=== PATIENT | female | born 1960 | race Caucasian/White ===

== ENCOUNTER → 2016-09-28 | Outpatient (CLI) | payer BC ==
[~2016-09-28] MED LIST: BENADRYL25 M2 PO; BYSTOLIC10 MG PO; PRIL40 PO; PRILOSEC 20MG20 MG PO; ULTRAM 50MG TAB50 MG PO; VEGETABLE PO; ZESTRIL 20MG TA20 MG PO; ZOFRAN8 MG PO
== END ==
LOC: MC.RAD 09-17 07:40
DX: Z12.31 Encounter for screening mammogram for malignant neoplasm of breast (principal); Z80.3 Family history of malignant neoplasm of breast

== ENCOUNTER → 2018-11-21 | Outpatient (CLI) | payer BC ==
[2018-11-21 13:35] LABS: BASO % 0.4 % (0.0-2.0); EOS # 0.3 (0.0-0.7); EOS % 2.9 % (0-4.0); GRAN # 5.7 (1.4-6.5); GRAN % 62.7 % (42.2-75.2); HEMATOCRIT 44.3 % (37.0-47.0); HEMOGLOBIN 13.9 g/dl (12.5-16.0); LYMPH # 2.3 (1.2-3.4); LYMPH % 25.2 % (20.0-51.0); MEAN CELL VOLUME 90 fl (80.0-100.0); MEAN CORPUSCULAR HEMOGLOBIN 28 pg (27.0-31.0); MEAN CORPUSCULAR HGB CONC 31 g/dl (33.0-37.0); MEAN PLATELET VOLUME 9.8 fl (7.4-10.4); MONO # 0.8 (0.1-0.6); MONO % 8.4 % (1.7-9.3); PLATELET COUNT 281 K/mm3 (130-400); RED BLOOD COUNT 4.94 M/mm3 (4.10-5.30); REDCELL DISTRIBUTION WIDTH-CV 14.6 % (11.5-14.5)
[2018-11-21 13:46] LABS: ALANINE AMINOTRANSFERASE 36 U/L (9-52); ALBUMIN 4.2 gm/dL (3.5-5.0); ALKALINE PHOSPHATASE 103 U/L (50-136); ANION GAP 11 mmol/L (7-16); AST,SGOT 53 U/L (15-37); BILIRUBIN,TOTAL 0.4 mg/dL (0.0-1.0); BLOOD UREA NITROGEN 17 mg/dL (7-17); CALCIUM 9.4 mg/dL (8.4-10.2); CARBON DIOXIDE 24 mmol/L (22-30); CHLORIDE 108 mmol/L (98-107); GLUCOSE 92 mg/dL (74-106); MAGNESIUM 1.8 mg/dL (1.6-2.3); POTASSIUM 4.2 mmol/L (3.4-5.0); SODIUM 142 mmol/L (137-145); TOTAL PROTEIN 7.9 gm/dL (6.4-8.2)
[2018-11-21 14:00] LABS: TROPONIN-I < 0.012 ng/mL (0.000-0.035)
== END ==
LOC: COL.CARD 12:57
PROVIDERS: Internal Medicine
DX: R00.1 Bradycardia, unspecified (principal)

== ENCOUNTER 2019-11-16 14:28 | Outpatient (RCR) | payer BC | END 2020-02-14 | disposition home or self-care (01) | LOC: MKS.ESL.PT | DX: H81.13 Benign paroxysmal vertigo, bilateral (principal) ==

== ENCOUNTER 2020-08-01 14:21 | Outpatient (CLI) | payer BC ==
[~2020-08-01] VITALS: Ht 162.6 cm; Wt 109.0 kg
[~2020-08-01 14:21] MED LIST changes: +ALEVE 220MG220 MG PO; +CALCIUM 600MG+D1 TAB PO; +CORICIDIN COUGH1 TAB PO; +PRESERVISION1 SGL PO; -PRILOSEC 20MG20 MG PO; +VITAMIN B COMPL1 T16 PO; +ZYRTEC 10MG10 MG PO
[2020-08-01 14:48] VITALS: BP 138/64; PULSE 67; TEMP 98.9
[2020-08-01 15:18] VITALS: BP 140/69; PULSE 57
[2020-08-01 15:30] VITALS: BP 121/61; PULSE 59
[2020-08-01 15:45] VITALS: BP 106/58; PULSE 55
[2020-08-01 16:00] VITALS: BP 118/69; PULSE 56
[2020-08-01 16:15] VITALS: PULSE 49; TEMP 98.7
--- NOTE | 2020-08-01 17:28 | NUR ---
Pt tolerated infusion well, she is amb to exit with steady gait.
== END 2020-08-01 17:20 | disposition home or self-care (01) ==
LOC: EUO 14:21
DX: U07.1 COVID-19 (principal)
CPT/HCPCS: J7050

== ENCOUNTER 2021-01-05 09:59 | Emergency (ER) | payer BC ==
[~2021-01-05] VITALS: Ht 162.6 cm; Wt 113.6 kg
[2021-01-05 10:09] VITALS: TEMP 98.5
[2021-01-05 10:29] LABS: BASO % 0.6 % (0.0-2.0); EOS # 0.2 (0.0-0.7); GRAN # 4.2 (1.4-6.5); GRAN % 65.3 % (42.2-75.2); HEMATOCRIT 41.2 % (37.0-47.0); HEMOGLOBIN 13.1 g/dl (12.5-16.0); LYMPH # 1.4 (1.2-3.4); LYMPH % 21.9 % (20.0-51.0); MEAN CELL VOLUME 87 fl (80.0-100.0); MEAN CORPUSCULAR HEMOGLOBIN 28 pg (27.0-31.0); MEAN CORPUSCULAR HGB CONC 32 g/dl (33.0-37.0); MEAN PLATELET VOLUME 10.7 fl (7.4-10.4); MONO # 0.6 (0.1-0.6); MONO % 8.9 % (1.7-9.3); PLATELET COUNT 217 K/mm3 (130-400); RED BLOOD COUNT 4.73 M/mm3 (4.10-5.30); REDCELL DISTRIBUTION WIDTH-CV 13.5 % (11.5-14.5)
[2021-01-05 10:40] LABS: ALANINE AMINOTRANSFERASE 61 U/L (4-34); ALBUMIN 3.9 gm/dL (3.5-5.0); ALKALINE PHOSPHATASE 94 U/L (50-136); ANION GAP 7 mmol/L (7-16); AST,SGOT 45 U/L (15-37); BILIRUBIN,TOTAL 0.5 mg/dL (0.0-1.0); BLOOD UREA NITROGEN 13 mg/dL (7-17); CALCIUM 8.9 mg/dL (8.4-10.2); CARBON DIOXIDE 25 mmol/L (22-30); CHLORIDE 109 mmol/L (98-107); CREATININE, serum 0.87 (0.52-1.25); GLUCOSE 115 mg/dL (74-106); POTASSIUM 3.9 mmol/L (3.4-5.0); SODIUM 141 mmol/L (137-145); TOTAL PROTEIN 7.3 gm/dL (6.4-8.2)
[2021-01-05 10:53] LABS: TROPONIN-I < 0.012 ng/mL (0.000-0.035)
[2021-01-05 12:55] VITALS: BP 152/68; PULSE 67
== END 2021-01-05 12:55 | disposition home or self-care (01) ==
LOC: COL.ER 09:59
PROVIDERS: Physician Assistant
DX: I10 Essential (primary) hypertension (principal); Z86.16 Personal history of COVID-19; K21.9 Gastro-esophageal reflux disease without esophagitis; Z79.899 Other long term (current) drug therapy; Z88.6 Allergy status to analgesic agent
CPT/HCPCS: J0360; J1885; J2765

== ENCOUNTER → 2021-01-21 | Outpatient (CLI) | payer BC | LOC: COL.VAS 07:42 | DX: I16.1 Hypertensive emergency (principal) ==

== ENCOUNTER → 2021-04-17 | Outpatient (CLI) | payer BC | LOC: MC.RAD 07:38 | DX: Z12.31 Encounter for screening mammogram for malignant neoplasm of breast (principal) ==

== ENCOUNTER → 2023-06-10 | Outpatient (CLI) | payer BC | LOC: COL.RAD 07:55 | DX: J34.89 Other specified disorders of nose and nasal sinuses (principal); R09.81 Nasal congestion; R05.9 Cough, unspecified ==